=== PATIENT | female | born 1940 | race Caucasian/White ===

== ENCOUNTER → 2016-04-27 | Outpatient (CLI) | payer MEDICARE ==
--- NOTE | 2016-04-27 11:11 | RAD ---
EXAM DESCRIPTION: XR LUMBAR SPINE 2-3 VIEWS CLINICAL HISTORY: 75 y/o , F, FALL COMPARISON: Portable supine AP abdomen September 11, 2015 FINDINGS: There are 5 lumbar type vertebral bodies in normal anatomic alignment. There is no evidence of acute fracture or dislocation. There is loss of disc space height at the L2/L3 through L5/S1 levels with multilevel vacuum disc phenomenon. There is associated facet hypertrophy throughout the lumbar spine. Limited evaluation of the ribs and bony pelvis demonstrate no gross abnormalities. There is a moderate amount of formed stool diffusely throughout the colon. The soft tissue structures of the abdomen and pelvis are grossly normal. IMPRESSION: 1. No acute fracture or dislocation of the lumbar spine. 2. Multilevel degenerative changes. Electronically signed by: Anuja Arellano MD 04/27/2016 11:09
--- NOTE | 2016-04-27 11:13 | RAD ---
EXAM DESCRIPTION: XR HIP 1 VIEW BILATERAL04/27/2016 11:04 AM AP and lateral views of the bilateral hips. CLINICAL HISTORY: 75 y/o , F, FALL COMPARISON: None. FINDINGS: There is no acute fracture or dislocation. The femoral heads are well seated in the acetabulum bilaterally. There are no significant degenerative changes. Limited evaluation of the lower lumbar spine and sacrum demonstrate no gross abnormalities. The soft tissue structures of the pelvis and proximal thighs are grossly normal. IMPRESSION: No acute fracture or dislocation of the bilateral hips. Electronically signed by: Anuja Arellano MD 04/27/2016 11:10
== END ==
LOC: RAD 10:43
PROVIDERS: ATTEND Nurse Practitioner Family
DX: M25.552 Pain in left hip (principal); M25.551 Pain in right hip; M54.5 Low back pain; M12.88 Other specific arthropathies, not elsewhere classified, other specified site; W19.XXXA Unspecified fall, initial encounter

== ENCOUNTER → 2016-05-08 | Outpatient (CLI) | payer MEDICARE ==
--- NOTE | 2016-05-08 15:57 | MAM ---
EXAM DESCRIPTION: MAMMO BREAST SCREENING BILATERAL CAD, images were reviewed with CAD technology, R2 computer-aided detection. CLINICAL HISTORY: [facility]. COMPARISON: 2011. FINDINGS: Routine views are obtained. Scattered glandular pattern period no dominant mass, architectural distortion or clustered microcalcification.. IMPRESSION: Benign study. BIRAD CATEGORY: 2 BENIGN RECOMMENDATIONS: FOLLOW-UP: Routine screening mammogram in one year. According to the [employer], yearly mammograms are recommended starting at age 40 and continuing as long as a woman is in good health. Any breast change noted on a breast self-exam should be reported promptly to the patient's healthcare provider. Breast MRI is recommended for women with an approximately 20-25% or greater lifetime risk of breast cancer, including women with a strong family history of breast or ovarian cancer and women who have been treated for Hodgkin's disease. Electronically signed by: Christen Parada 05/08/2016 15:55
== END ==
LOC: MAMMO 11:22
PROVIDERS: ATTEND Nurse Practitioner Family
DX: Z12.31 Encounter for screening mammogram for malignant neoplasm of breast (principal)
CPT/HCPCS: 77052; G0202

== ENCOUNTER → 2016-07-16 | Outpatient (CLI) | payer MEDICARE | END | disposition home or self-care (01) | LOC: YCFC.O 08:16 | PROVIDERS: ATTEND Nurse Practitioner Family | DX: E78.2 Mixed hyperlipidemia (principal); Z87.442 Personal history of urinary calculi ==

== ENCOUNTER → 2017-06-16 | Outpatient (CLI) | payer MEDICARE ==
--- NOTE | 2017-06-16 13:28 | MAM ---
Screening BILATERAL MAMMOGRAMS HISTORY: SCREENING COMPARISON: Mammograms of April 18, 2016 and August 15, 2014 TECHNIQUE: Digital 2-D mammograms , and 3-D tomosynthesis,1 of both breasts were performed in CC and MLO orientations. Mammo CAD analysis also performed. FINDINGS: Scattered fibroglandular tissue identified in both breasts. Benign microcalcifications scattered in both breasts. No obvious mass lesion or concerning microcalcifications detected in either breast. IMPRESSION: No mammographic evidence of malignancy in either breast. BI-RADS: 2, benign findings. Follow-up: Annual surveillance recommended Electronically signed by: Ángel Mendez MD 06/16/2017 1:27 PM [facility]
== END ==
LOC: MAMMO 08:59
PROVIDERS: ATTEND Nurse Practitioner Family
DX: Z12.31 Encounter for screening mammogram for malignant neoplasm of breast (principal)

== ENCOUNTER → 2017-06-27 | Outpatient (CLI) | payer MEDICARE ==
--- NOTE | 2017-06-27 12:02 | CT ---
EXAM DESCRIPTION: CT ABDOMEN AND PELVIS WITH CONTRAST CLINICAL HISTORY: LLQ ABD PAIN. R10.32 COMPARISON: None Available. TECHNIQUE: CT of the abdomen and pelvis are performed during IV bolus administration of 100 mL of Isovue 300. Oral contrast media is administered as well. This exam was performed according to our departmental dose-optimization program, which includes automated exposure control, adjustment of the mA and/or kV according to patient size and/or use of iterative reconstruction technique. FINDINGS: The lung bases are clear of infiltrate. Small sliding-type hiatal hernia is noted. Mild diffuse fatty infiltration of the liver is present compared to the spleen without focal mass. Numerous large stones fill the gallbladder with peripheral calcification measuring as much as 2.5 cm in diameter. No ductal dilation noted. The pancreas normally enhances without cyst or mass in the common bile duct is small and normal in caliber. Normal adrenal glands are noted. Intense enhancement of the kidneys without stone or cyst or mass or obstruction. Retroperitoneum is unremarkable. Within the pelvis the uterus is surgically absent and no adnexal mass noted. Abdominal or pelvic ascites or retroperitoneal adenopathy is not apparent. Aortic calcification without aneurysm is present. The bladder distends normally. Large and small bowel caliber are normal. In the right lower quadrant a normal appendix is noted. Ileocecal valve is normal. Moderate diverticulosis of the descending and sigmoid colon is present. Marked bowel wall thickening or acute pericolic mesenteric inflammation or drainable fluid collection or abscess in the left lower quadrant is not apparent. Convincing changes to confirm acute diverticulitis are not identified radiographically. The distal sigmoid colon appears slightly thick walled and collapsed but enhancement or pericolic inflammation to confirm this represents acute diverticulitis is not evident. The anterior abdominal and anterior pelvic wall are unremarkable. Multilevel moderate degenerative disc narrowing and vacuum phenomena with normal alignment of the spine is noted. No vertebral collapse is evident. Very mild scoliosis on the coronal imaging is apparent. The inguinal regions and pelvic side wall are unremarkable. IMPRESSION: 1. Descending and sigmoid colonic extensive diverticulosis but without convincing evidence of acute diverticulitis. Hyperemia marked bowel wall thickening or pericolic inflammation or drainable abscess or phlegmon is not apparent. 2. Cholelithiasis with large peripherally calcified gallstones filling the gallbladder is much is 2.5 cm in diameter. 3. Small hiatal hernia. 4. Scoliosis of the lumbar spine with multilevel advanced degenerative disc disease Electronically signed by: Elias Ramirez MD 06/27/2017 12:02 PM CDT
== END ==
LOC: LAB.O 07:06
PROVIDERS: ATTEND Nurse Practitioner Family
DX: K57.30 Diverticulosis of large intestine without perforation or abscess without bleeding (principal); K80.20 Calculus of gallbladder without cholecystitis without obstruction; K44.9 Diaphragmatic hernia without obstruction or gangrene; R10.32 Left lower quadrant pain; I10 Essential (primary) hypertension; E78.00 Pure hypercholesterolemia, unspecified; E53.8 Deficiency of other specified B group vitamins; D64.9 Anemia, unspecified; R53.83 Other fatigue

== ENCOUNTER → 2017-10-23 | Outpatient (CLI) | payer MEDICARE | LOC: RESP 10:21 | PROVIDERS: ATTEND Nurse Practitioner Family | DX: Z01.818 Encounter for other preprocedural examination (principal) ==

== ENCOUNTER → 2017-11-26 | Day surgery (SDC) | payer MEDICARE | LOC: AMB 05:49 | PROVIDERS: ATTEND Internal Medicine Gastroenterology | DX: Z12.11 Encounter for screening for malignant neoplasm of colon (principal) ==

== ENCOUNTER → 2018-06-18 | Outpatient (CLI) | payer MEDICARE | LOC: LAB.O 07:19 | PROVIDERS: ATTEND Nurse Practitioner Family | DX: I10 Essential (primary) hypertension (principal); E53.8 Deficiency of other specified B group vitamins; E78.00 Pure hypercholesterolemia, unspecified; M85.80 Other specified disorders of bone density and structure, unspecified site; E56.9 Vitamin deficiency, unspecified ==

== ENCOUNTER → 2018-10-19 | Outpatient (CLI) | payer MEDICARE ==
--- NOTE | 2018-10-20 16:43 | MAM ---
EXAM DESCRIPTION: 3D Screening BILATERAL : Digital Mammography. CLINICAL HISTORY: 78 years Female SCREENING . No complaints. No personal or family history of breast cancer. Postmenopausal 30+ years. No childbirth. HRT 5 or more years ago. Benign cyst aspiration biopsy on the left. Lifetime risk of developing breast cancer (Tyrer-Cuzick model)(%): 4.6. COMPARISON: Bilateral screening digital breast tomosynthesis 06/16/2017. TECHNIQUE: Bilateral CC and MLO projection full-field images, digital tomosynthesis mammographic technique. Bilateral digital 2-D full-field MLO images. CAD not available for tomosynthesis or 2-D images. FINDINGS: The breast parenchymal density pattern is: Scattered areas of fibroglandular density. No skin thickening or nipple retraction. No new focal, stellate mass or density, focal asymmetry , and no suspicious microcalcifications bilaterally. Stable mammograms compared to prior study. IMPRESSION: Negative findings. BI-RADS CATEGORY: 1 - NEGATIVE. FOLLOW UP: Routine digital bilateral screening, one year interval from October 2018. Written communication explaining the findings and follow-up, will be mailed to the patient and referring health care provider. According to the [employer], yearly mammograms are recommended starting at age 40 and continuing as long as a woman is in good health. Any breast change noted on a breast self-exam should be reported promptly to the patient's healthcare provider. Breast MRI is recommended for women with an approximately 20-25% or greater lifetime risk of breast cancer, including women with a strong family history of breast or ovarian cancer and women who have been treated for Hodgkin's disease. A negative mammographic report should not delay tissue diagnosis in patients with significant clinical history or physical findings. Extremely dense breast tissue limits the sensitivity of digital mammography. Electronically signed by: Vick Cheema MD 10/20/2018 4:41 PM CDT
== END ==
LOC: MAMMO 09:00
PROVIDERS: ATTEND Nurse Practitioner Family
DX: Z12.31 Encounter for screening mammogram for malignant neoplasm of breast (principal)

== ENCOUNTER → 2019-08-11 | Outpatient (CLI) | payer MEDICARE | LOC: YCFC.O 07:39 | PROVIDERS: ATTEND Nurse Practitioner | DX: I10 Essential (primary) hypertension (principal); E78.5 Hyperlipidemia, unspecified; Z83.49 Family history of other endocrine, nutritional and metabolic diseases ==

== ENCOUNTER 2020-04-02 00:07 | Emergency (ER) | payer MEDICARE ==
[2020-04-02] MEDS ORDERED: ALUM & MAG HYDROX-SIMETHICONE 30 ML, LIDOCAINE VISCOUS 2% 15 ML PO ONE ×2 (00:16)
[2020-04-02] MEDS ORDERED: ONDANSETRON INJ 4 MG/2 ML VIAL IV ONE ×2 (00:16→01:56)
[2020-04-02] MEDS ORDERED: DICYCLOMINE HCL INJ 20 MG/2 ML AMP IM ONE ×2 (00:17→00:19)
[2020-04-02] MEDS ORDERED: ALUM & MAG HYDROX-SIMETHICONE 30 ML UD ONE (00:19)
[2020-04-02] MEDS ORDERED: ONDANSETRON INJ 4 MG/2 ML VIAL ONE (00:19)
[2020-04-02] MEDS ORDERED: SODIUM CHLORIDE 0.9% 1000ML 1,000 ML IVS ONE (00:19)
[2020-04-02] MEDS ORDERED: LIDOCAINE HCL 2% (MOUTH-THROAT) 15 ML UD ONE (00:19)
--- NOTE | 2020-04-02 00:24 | ED.PDOC ---
History of Present Illness - General Chief Complaint: Abdominal Pain Stated Complaint: feels bloated and right upper quad pain Time Seen by Provider: 04/02/20 00:17 Information Source: patient, RN notes reviewed, Vital Signs reviewed Exam Limitations: no limitations - History of Present Illness Initial Comments: The patient is a 79 year old with past medical history significant for hypertension who presents to the Emergency Department for abdominal pain. She states that this afternoon she ate lawanda greens and baked chicken legs and developed abdominal pain. She complains of cramping abdominal pain in the epigastric and lower abdominal regions. She has some nausea and drank "a cup of water and vinegar" which she vomited. She has had persistent nausea. She had a normal bowel movement this afternoon and states that "it feels like i'm going to have diarrhea." She denies any recent travel or known sick contacts. No chest pain, palpitations or shortness of breath. She is unable to identify any modifying factors. No other complaints at this time. Review of Systems - Review of Systems Constitutional: Denies: chills, fever, malaise EENTM: States: no symptoms reported Respiratory: Denies: cough, short of breath Cardiology: Denies: chest pain, palpitations Gastrointestinal/Abdominal: States: abdominal pain, nausea, vomiting Musculoskeletal: States: no symptoms reported Skin: States: no symptoms reported Neurological: States: no symptoms reported Endocrine: States: no symptoms reported Hematologic/Lymphatic: States: no symptoms reported All other Systems: Reviewed and Negative Past Medical History (General) - Patient Medical History Hx Hypertension: Yes - Vaccination History Hx Influenza Vaccination: Yes Hx Pneumococcal Vaccination: Yes Family Medical History - Family History Father Family History: Unknown Physical Exam - Physical Exam General Appearance: Comfortable, No apparent distress, Well Developed, Well Groomed, Well Hydrated, Well Nourished Eyes, Ears, Nose, Throat Exam: normal ENT inspection Neck: supple Respiratory: no respiratory distress Cardiovascular/Chest: regular rate, rhythm Gastrointestinal/Abdominal: non tender, soft, no pulsatile mass, other - no focal tenderness, rebound or guarding Neurologic: no motor/sensory deficits, alert, oriented x 3 Skin Exam: normal color, warm/dry Progress - Progress Progress: 04/02/20 01:46 Patient reassessed, workup shows cholelithiasis, hiatal hernia and acute cystitis. Repeat abdominal exam is benign and she is tolerating PO. Will continue outpatient symptomatic management and she will follow up with her PCP. Home care instructions and return indications reviewed. - Results/Orders Results/Orders: 04/02/20 00:14 IV Care:Saline Lock per Protoc QSHIFT 04/02/20 00:15 EKG STAT 04/02/20 00:18 Hold Metformin x 48Hrs [id number] Laboratory Results - last 24 hr 04/02/20 04/02/20 04/02/20 00:15 00:15 00:15 WBC 7.3 RBC 4.45 Hgb 12.8 Hct 37.7 MCV 84.8 MCH 28.7 MCHC 33.8 RDW 13.0 Plt Count 237 MPV 7.8 Absolute Neuts (auto) 5.00 Absolute Lymphs (auto) 1.60 Absolute Monos (auto) 0.50 Absolute Eos (auto) 0.10 Absolute Basos (auto) 0.00 Neutrophils % 69.2 Lymphocytes % 21.6 Monocytes % 6.7 Eosinophils % 1.8 Basophils % 0.7 Sodium 139 Potassium 4.2 Chloride 100 L Carbon Dioxide 26 Anion Gap 17.2 BUN 20 H Creatinine 0.78 BUN/Creatinine Ratio 25.6 H Random Glucose 136 H Serum Osmolality 282.2 Calcium 9.8 Total Bilirubin 0.8 AST 21 ALT 19 Alkaline Phosphatase 83 Troponin I Serum Total Protein 7.3 Albumin 4.3 Globulin 3.0 Albumin/Globulin Ratio 1.4 Amylase 67 Lipase 35 Urine Color Urine Appearance Urine pH Ur Specific Jackson Urine Protein Urine Glucose (UA) Urine Ketones Urine Blood Urine Nitrite Urine Bilirubin Urine Urobilinogen Ur Leukocyte Esterase Urine RBC Urine WBC Ur Epithelial Cells Amorphous Sediment Urine Bacteria 04/02/20 04/02/20 00:15 00:40 WBC RBC Hgb Hct MCV MCH MCHC RDW Plt Count MPV Absolute Neuts (auto) Absolute Lymphs (auto) Absolute Monos (auto) Absolute Eos (auto) Absolute Basos (auto) Neutrophils % Lymphocytes % Monocytes % Eosinophils % Basophils % Sodium Potassium Chloride Carbon Dioxide Anion Gap BUN Creatinine BUN/Creatinine Ratio Random Glucose Serum Osmolality Calcium Total Bilirubin AST ALT Alkaline Phosphatase Troponin I < 0.02 Serum Total Protein Albumin Globulin Albumin/Globulin Ratio Amylase Lipase Urine Color Yellow Urine Appearance Clear Urine pH 7.5 Ur Specific Jackson 1.025 Urine Protein Negative Urine Glucose (UA) Negative Urine Ketones Negative Urine Blood Negative Urine Nitrite Negative Urine Bilirubin Negative Urine Urobilinogen 0.2 Ur Leukocyte Esterase Trace H Urine RBC 1-3 Urine WBC 5-10 H Ur Epithelial Cells 1-3 Amorphous Sediment 2+ Urine Bacteria 1+ MDM: Patient reassessed, workup as above. She has both upper and lower abdominal pain with benign exam. she has cholelithiasis without evidence for acute cholecystitis, hiatial hernia, and cystitis without pyelonephritis. Her abdominal exam has remained benign and she is tolerating PO in the Emergency Department. Will continue outpatient symptomatic management and she will follow up with her PCP. Home care instructions and return indications reviewed. - EKG/XRAY/CT Comments: 0008 NSR at 81, nl axis, nl intervals, no STEMI Departure - Departure Clinical Impression: Hiatal hernia Cholelithiasis Qualifiers: Cholelithiasis location: gallbladder Cholecystitis presence: without cholecystitis Biliary obstruction: without biliary obstruction Qualified Code(s): K80.20 - Calculus of gallbladder without cholecystitis without obstruction Acute cystitis Qualifiers: Hematuria presence: without hematuria Qualified Code(s): N30.00 - Acute cystitis without hematuria Time of Disposition: 01:51 Disposition: Discharge to Home or Self Care Condition: Good Departure Forms: ED Discharge - Pt. Copy, Patient Portal Self Enrollment Instructions: DI for Abdominal Pain-Adult, Hiatal Hernia (DC), Urinary Tract Infection, Adult (DC), Gallstones (DC) Diet: bland diet Activity: increase activity as tolerated Referrals: Dianna Lizama FNP [Primary Care Provider] - 1-2 Weeks Prescriptions: Dicyclomine HCl [Bentyl] 20 mg PO Q6HRS PRN #20 tab PRN Reason: Pain Cephalexin Monohydrate [Keflex] 500 mg PO BID #10 cap Omeprazole 40 mg PO DAILY #30 cap Home Medications: Ambulatory Orders Ascorbic Acid [Vitamin C] 1,000 mg PO DAILY 04/02/20 Aspirin [Aspirin 81 Low Dose] 81 mg PO DAILY 04/02/20 Atorvastatin Calcium [Lipitor] 10 mg PO DAILY 04/02/20 Cephalexin Monohydrate [Keflex] 500 mg PO BID #10 cap 04/02/20 Cholecalciferol [Vitamin D] 1,000 unit PO DAILY 04/02/20 Dicyclomine HCl [Bentyl] 20 mg PO Q6HRS PRN #20 tab 12/20/20 Fish Oil [(None)] 1,200 mg PO DAILY 04/02/20 Metoprolol Succinate [Metoprolol Succinate ER] 50 mg PO BID 04/02/20 Omeprazole 40 mg PO DAILY #30 cap 04/02/20 Zinc 50 mg PO DAILY 04/02/20
--- NOTE | 2020-04-02 01:38 | CT ---
EXAM: CT Abdomen and Pelvis With Intravenous Contrast CLINICAL HISTORY: The patient is 79 years old and is Female; lower abdominal pain TECHNIQUE: Axial computed tomography images of the abdomen and pelvis with intravenous contrast. Sagittal and coronal reformatted images were created and reviewed. This CT exam was performed using one or more of the following dose reduction techniques: automated exposure control, adjustment of the mA and/or kV according to patient size, and/or use of iterative reconstruction technique. COMPARISON: No relevant prior studies available. FINDINGS: Lung bases: Unremarkable. No mass. No consolidation. Mediastinum: Small hiatal hernia. ABDOMEN: Liver: Unremarkable. No mass. Gallbladder and bile ducts: Two large gallstones measuring up to 3.3 cm in the gallbladder. Pancreas: Unremarkable. No mass. No ductal dilation. Spleen: Unremarkable. No splenomegaly. Adrenals: Unremarkable. No mass. Kidneys and ureters: 8 mm simple cyst in the left kidney which requires no imaging follow-up. No hydronephrosis. Stomach and bowel: Unremarkable. No obstruction. No mucosal thickening. PELVIS: Appendix: No findings to suggest acute appendicitis. Bladder: Unremarkable. No mass. Reproductive: Unremarkable as visualized. ABDOMEN and PELVIS: Intraperitoneal space: Unremarkable. No free air. No significant fluid collection. Bones/joints: Multilevel disc space narrowing with degenerative endplate changes and vacuum disc phenomenon in the lumbar spine. Mild anterolisthesis of L5 on S1. No acute fracture. No dislocation. Soft tissues: Unremarkable. Vasculature: Unremarkable. No abdominal aortic aneurysm. Lymph nodes: Unremarkable. No enlarged lymph nodes. IMPRESSION: 1. Cholelithiasis with two large gallstones measuring up to 3.3 cm . 2. Small hiatal hernia. Electronically signed by: Fernando Hennessy MD 04/02/2020 1:36 AM PUBLISHING SPECIALIST
[2020-04-02] MEDS ORDERED: CEPHALEXIN MONOHYDRATE 500 MG CAP PO ONE (01:57)
[2020-04-02] MEDS ORDERED: ONDANSETRON ODT (ER DISP) 8 MG TAB PO ONE (02:54)
[2020-04-02 03:03] VITALS: BP 157/136; TEMP 97.9; O2SAT 96
== END 2020-04-02 03:01 | disposition home or self-care (01) ==
LOC: ER 00:07
DX: K80.20 Calculus of gallbladder without cholecystitis without obstruction (principal); K44.9 Diaphragmatic hernia without obstruction or gangrene; N30.00 Acute cystitis without hematuria; R11.2 Nausea with vomiting, unspecified; I10 Essential (primary) hypertension; Z79.82 Long term (current) use of aspirin; Z79.899 Other long term (current) drug therapy
CPT/HCPCS: 36415; 74177; 80053; 81001; 82150; 83690; 84484; 85025; 93005; J0500; J2405; J7030

== ENCOUNTER → 2020-04-05 | Outpatient (CLI) | payer MEDICARE | LOC: YCFC.O 14:26 | PROVIDERS: ATTEND Nurse Practitioner Family | DX: Z01.89 Encounter for other specified special examinations (principal); I10 Essential (primary) hypertension; Z86.39 Personal history of other endocrine, nutritional and metabolic disease ==

== ENCOUNTER 2020-04-20 05:32 | Day surgery (SDC) | payer MEDICARE ==
--- NOTE | 2020-04-18 15:44 | RAD ---
EXAM DESCRIPTION: Chest,2 Views x-ray CLINICAL HISTORY: 79 years Female, preop COMPARISON: None. IMPRESSION: Heart size and pulmonary vascularity are within normal limits. The lungs are hyperexpanded. There is no airspace consolidation, pleural effusion, or pneumothorax. No acute osseous abnormality. Electronically signed by: Emil Lee MD 04/18/2020 3:42 PM CLINICAL DOCUMENTATION [facility]
[2020-04-20] MEDS ORDERED: LACTATED RINGERS 1,000 ML ONE (06:34)
[2020-04-20] MEDS ORDERED: ceFAZolin SODIUM 1 GM VIAL ONE (06:34)
[2020-04-20] MEDS ORDERED: SODIUM CHL 0.9% 100ML MINI-BAG 100 ML IVPB ONE (06:34)
[2020-04-20] MEDS ORDERED: DEXAMETHASONE INJ 10 MG/ML VIAL ONE (07:00)
[2020-04-20] MEDS ORDERED: MAGNESIUM SULFATE INJ 1 GM/2 ML VIAL ONE (07:00)
[2020-04-20] MEDS ORDERED: LIDOCAINE 1% 10 ML VIAL INJ ONE (07:00)
[2020-04-20] MEDS ORDERED: PROPOFOL 200 MG/20 ML VIAL IV ONE (07:00)
[2020-04-20] MEDS ORDERED: ePHEDrine SULF 50 MG/ML ONE (07:00)
[2020-04-20] MEDS ORDERED: HEPARIN SODIUM (PORCINE) 10,000 UNITS/ML VIAL ONE (07:02)
[2020-04-20] MEDS ORDERED: BUPIVACAINE 0.25% W/EPI 50 ML VIAL INJ ONE (07:03)
[2020-04-20] MEDS ORDERED: SCOPOLAMINE PATCH 1.5MG 1 EA TD ONE ×2 (07:35→07:36)
[2020-04-20] MEDS ORDERED: SUGAMMADEX SODIUM 200 MG/2 ML VIAL IV ONE (07:58)
[2020-04-20] MEDS ORDERED: KETAMINE HCL 100 MG/ML VIAL ONE (07:58)
[2020-04-20] MEDS ORDERED: fentaNYL CITRATE INJ 50 MCG/ML 2 ML AMP ONE (07:58)
[2020-04-20] MEDS ORDERED: MIDAZOLAM INJ 2 MG/2 ML VIAL ONE (07:59)
[2020-04-20] MEDS ORDERED: ROCURONIUM BROMIDE 10 MG/ML VIAL ONE (07:59)
[2020-04-20] MEDS ORDERED: FAMOTIDINE INJ 10 MG/ML VIAL IV ONE (07:59)
[2020-04-20] MEDS ORDERED: LACTATED RINGERS 400 ML IVS ONE (10:24)
[2020-04-20 12:09] VITALS: BP 148/75; TEMP 96.5; O2SAT 94
--- NOTE | 2020-04-21 09:54 | OP ---
DATE OF PROCEDURE: 04/20/20 PREOPERATIVE DIAGNOSIS: 1. Symptomatic cholelithiasis. POSTOPERATIVE DIAGNOSIS: 1. Symptomatic cholelithiasis. 2. Subacute cholecystitis. PROCEDURE: 1. Laparoscopic cholecystectomy with intraoperative cholangiography using fluoroscopy. SURGEON: Cesar Glover MD. MINER: None. ANESTHESIA: Local infiltration of 0.25% Marcaine with epinephrine and general endotracheal anesthesia. INDICATION: The patient is a 79-year-old female who has had significant recently difficulties with fatty food with right upper quadrant pain, nausea, belching and bloating. After the risks, benefits and alternatives were discussed and the patient obtained preoperative clearance from [facility]. The patient was brought to the Surgical Suite today for cholecystectomy. FINDINGS: The gallbladder had multiple fresh adhesions. The wall was edematous. Intraoperative cholangiography revealed free flow into the duodenum with no filling defects or strictures noted. The stones were quite large and were crushed. No other pathology was identified. DESCRIPTION OF PROCEDURE: After adequate general endotracheal anesthesia was obtained, the patient was prepped and draped in the usual sterile manner. Surgical time-out was taken. The infraumbilical area was infiltrated with local anesthesia. A transverse incision was made and dissection was carried down through the skin and subcutaneous tissue to the midline fascia. Traction sutures were placed on either side of the midline. A small incision was made in the midline fascia and the peritoneum was opened bluntly. Lana trocar was introduced under direct vision into the abdominal cavity and fixed in place with the 20 mL balloon. CO2 was then insufflated until a pressure of 12 mmHg was reached and the abdomen was tympanitic in all four quadrants. When this was done, the laparoscope was introduced. Multiple adhesions were noted to the anterior abdominal wall from the omentum and to the gallbladder. The lateral port site was placed under direct vision in the usual manner and then dissector was introduced and the adhesions to the anterior abdominal wall were taken down. This allowed the placement of the other ports. The patient was then placed in reverse Trendelenburg position and turned to the patient's left side down. At this point, the adhesions to the gallbladder were taken down using blunt dissection without difficulty. The gallbladder was grasped, retracted anteriorly and laterally. The neck of the gallbladder was identified and retracted laterally. The triangle of Calot was then explored with the cystic duct and cystic artery identified and isolated. The cystic duct was hemoclipped once proximally. The cystic artery was hemoclipped twice proximally and once distally. A small incision was made in the cystic duct. The cholangiogram catheter was introduced under direct vision into the cystic duct and clipped in place. Cholangiograms were then taken using fluoroscopy which revealed free flow into the duodenum with no filling defects or strictures noted. When this was done, the cystic duct catheter was removed. The cystic duct was hemoclipped three times distally and divided between the hemoclips. The cystic artery was divided. The gallbladder was then dissected free from the gallbladder bed of the liver with some difficulty due to the edema. The gallbladder was then placed in an EndoCatch bag and removed from the infraumbilical port site in the usual manner under direct vision. When this was done, the subhepatic space and subphrenic space were irrigated copiously with saline. The effluent was noted to be clear. Adequate hemostasis was noted in the gallbladder bed of the liver. The ang hepatis was inspected and no bleeding or bile leak was identified. The upper abdominal ports were removed under direct vision. At this point, the CO2, the laparoscope and the infraumbilical port were removed. The infraumbilical port site fascia was approximated with a single [id number] suture of 0 Vicryl. Subcutaneous tissue was irrigated with saline. Skin edges were approximated with 4-0 Vicryl subcuticular sutures, benzoin and Steri- Strips. Sterile dressings were applied. The patient was awakened and taken to the Recovery Room in good and stable condition. Estimated blood loss was less than 50 mL. All sponge, needle and instrument counts were correct. #[id number] [facility]
--- NOTE | 2020-04-25 09:07 | RAD ---
EXAM DESCRIPTION: Fluoroscopy Up to 1Hr CLINICAL HISTORY: 79 years Female, IOC COMPARISON: None. FINDINGS/IMPRESSION:: Spot fluoroscopic intraoperative views of the abdomen obtained during intraoperative cholangiogram show good opacification and dilatation of the intra and extrahepatic biliary ductal system. No definite filling defects are seen in the common bile duct. Flow contrast into the duodenum is seen. Surgical clips related to cholecystectomy are identified. Approximately 20 seconds of intraoperative fluoroscopy time was utilized. No extra exposure images are obtained. Electronically signed by: Raúl Kimble MD 04/25/2020 9:06 AM [facility]
== END 2020-04-20 11:55 | disposition home or self-care (01) ==
LOC: AMB 05:32
PROVIDERS: ATTEND Surgery
DX: K80.10 Calculus of gallbladder with chronic cholecystitis without obstruction (principal); K82.8 Other specified diseases of gallbladder; I25.10 Atherosclerotic heart disease of native coronary artery without angina pectoris; I10 Essential (primary) hypertension; Z90.710 Acquired absence of both cervix and uterus; Z79.899 Other long term (current) drug therapy
CPT/HCPCS: 00790; 47563; 71046; 76000; 88304; J0690; J1100; J1644; J2250; J3010; J3475; J3490; J7050; J7120